=== PATIENT | male | born 1975 | race Caucasian/White ===

== ENCOUNTER 2019-05-29 15:55 | Observation (INO) | payer OTHER ==
[2019-05-29] MEDS ORDERED: SODIUM CHLORIDE 0.9% 1,000 ML IV STA (16:31)
[2019-05-29] MEDS ORDERED: DILTIAZEM DRIP BOLUS FROM BAG 1 MG SOLN IV ONE (16:45)
--- NOTE | 2019-05-29 16:50 | ED ---
General Adult HPI - General Chief complaint: Syncope Stated complaint: Syncope Time Seen by Provider: 05/29/19 16:15 Source: patient, family, RN notes reviewed Mode of arrival: EMS Limitations: no limitations - History of Present Illness Initial comments: Patient is a pleasant 43-year-old male presenting to the emergency department after 2 near-syncopal episodes. Patient felt dizzy prior to the episodes. Second episode patient did fall to the ground however did not completely black out. Patient did not completely lose consciousness on either episode. No head injury. Patient feels fine at this time line in bed. Patient denies any chest pain or difficulty in breathing. No palpitations. Patient does have a history of syncopal episode once previously associated with strep throat. Patient has no history of cardiac disease. Patient denies any confusion or isolated area of weakness. - Related Data Home Medications Medication Instructions Recorded Confirmed No Known Home Medications 05/29/19 05/29/19 Allergies Allergy/AdvReac Type Severity Reaction Status Date / Time No Known Allergies Allergy Verified 05/29/19 17:07 Review of Systems ROS Statement: Those systems with pertinent positive or pertinent negative responses have been documented in the HPI. ROS Other: All systems not noted in ROS Statement are negative. Constitutional: Denies: fever Eyes: Denies: eye pain ENT: Denies: ear pain Respiratory: Denies: cough Cardiovascular: Denies: chest pain, palpitations, dyspnea on exertion, orthopnea, edema Endocrine: Denies: fatigue Gastrointestinal: Denies: abdominal pain, vomiting Genitourinary: Denies: dysuria Musculoskeletal: Denies: back pain Skin: Denies: rash Neurological: Denies: headache, weakness, confusion Past Medical History Past Medical History: No Reported History History of Any Multi-Drug Resistant Organisms: None Reported Past Surgical History: Hernia Repair Past Psychological History: No Psychological Hx Reported Smoking Status: Former smoker Past Alcohol Use History: None Reported Past Drug Use History: None Reported General Exam Limitations: no limitations General appearance: alert, in no apparent distress Head exam: Present: atraumatic Eye exam: Present: normal appearance, PERRL, EOMI. Absent: nystagmus ENT exam: Present: normal oropharynx Neck exam: Present: normal inspection Respiratory exam: Present: normal lung sounds bilaterally Cardiovascular Exam: Present: tachycardia, irregular rhythm Expanded Peripheral pulses: 2+: Radial (R), Radial (L), Dorsalis Pedis (R), Dorsalis Pedis (L) GI/Abdominal exam: Present: soft. Absent: tenderness Extremities exam: Present: normal inspection. Absent: pedal edema, calf tenderness Neurological exam: Present: alert, oriented X3, CN II-XII intact. Absent: motor sensory deficit Expanded Neurological exam: Present: protecting the airway Patient oriented to: Present: person, place, time Speech: Present: fluid speech Cranial nerves: EOM's Intact: Normal Motor strength exam: RUE: 5, LUE: 5, RLE: 5, LLE: 5 Eye Response: (4) open spontaneously Motor Response: (6) obeys commands Verbal Response: (5) oriented Psychiatric exam: Present: normal affect, normal mood Skin exam: Present: normal color Course Vital Signs 05/29/19 05/29/19 16:07 16:14 Temperature 99.4 F Pulse Rate [ 133 H Sitting] Pulse Rate [ 164 H Standing] Pulse Rate [ 122 H Supine] Respiratory 16 Rate Blood Pressure 101/91 [Sitting] Blood Pressure 85/75 [Standing] Blood Pressure 117/77 [Supine] O2 Sat by Pulse 96 Oximetry EKG Findings - EKG Comments: EKG Findings:: A. fib with rate of 127, RVR. QRS 78. QT 324. QTC 470. Normal axis. Normal QRS. Nonspecific T waves. Medical Decision Making - Medical Decision Making Patient reevaluated and resting comfortably in bed. Patient states he has had a little bit of a sore throat and chills last couple of days similar to previous strep throat. Throat swab will be ordered. Patient is updated on results and plan. Case was also discussed in detail with Dr. Jones, who will admit covered for hospital call. Cardiology placed on consult. - Lab Data Result diagrams: 05/29/19 16:34 05/29/19 16:34 Lab Results 05/29/19 05/29/19 05/29/19 Range/Units 16:34 16:34 16:34 WBC 17.7 H (3.8-10.6) k/uL RBC 5.06 (4.30-5.90) m/uL Hgb 14.4 (13.0-17.5) gm/dL Hct 43.8 (39.0-53.0) % MCV 86.5 (80.0-100.0) fL MCH 28.5 (25.0-35.0) pg MCHC 33.0 (31.0-37.0) g/dL RDW 13.7 (11.5-15.5) % Plt Count 302 (150-450) k/uL Neutrophils % 88 % Lymphocytes % 6 % Monocytes % 4 % Eosinophils % 1 % Basophils % 0 % Neutrophils # 15.6 H (1.3-7.7) k/uL Lymphocytes # 1.1 (1.0-4.8) k/uL Monocytes # 0.6 (0-1.0) k/uL Eosinophils # 0.2 (0-0.7) k/uL Basophils # 0.0 (0-0.2) k/uL PT (9.0-12.0) sec INR (<1.2) APTT (22.0-30.0) sec Sodium 137 (137-145) mmol/L Potassium 3.8 (3.5-5.1) mmol/L Chloride 105 (98-107) mmol/L Carbon Dioxide 23 (22-30) mmol/L Anion Gap 9 mmol/L BUN 13 (9-20) mg/dL Creatinine 1.15 (0.66-1.25) mg/dL Est GFR (CKD-EPI)AfAm 90 (>60 ml/min/1.73 sqM) Est GFR (CKD-EPI)NonAf 78 (>60 ml/min/1.73 sqM) Glucose 108 H (74-99) mg/dL Plasma Lactic Acid Larry 1.6 (0.7-2.0) mmol/L Calcium 9.1 (8.4-10.2) mg/dL Magnesium 2.0 (1.6-2.3) mg/dL Troponin I (0.000-0.034) ng/mL 05/29/19 05/29/19 Range/Units 16:34 16:34 WBC (3.8-10.6) k/uL RBC (4.30-5.90) m/uL Hgb (13.0-17.5) gm/dL Hct (39.0-53.0) % MCV (80.0-100.0) fL MCH (25.0-35.0) pg MCHC (31.0-37.0) g/dL RDW (11.5-15.5) % Plt Count (150-450) k/uL Neutrophils % % Lymphocytes % % Monocytes % % Eosinophils % % Basophils % % Neutrophils # (1.3-7.7) k/uL Lymphocytes # (1.0-4.8) k/uL Monocytes # (0-1.0) k/uL Eosinophils # (0-0.7) k/uL Basophils # (0-0.2) k/uL PT 10.6 (9.0-12.0) sec INR 1.0 (<1.2) APTT 20.8 L (22.0-30.0) sec Sodium (137-145) mmol/L Potassium (3.5-5.1) mmol/L Chloride (98-107) mmol/L Carbon Dioxide (22-30) mmol/L Anion Gap mmol/L BUN (9-20) mg/dL Creatinine (0.66-1.25) mg/dL Est GFR (CKD-EPI)AfAm (>60 ml/min/1.73 sqM) Est GFR (CKD-EPI)NonAf (>60 ml/min/1.73 sqM) Glucose (74-99) mg/dL Plasma Lactic Acid Larry (0.7-2.0) mmol/L Calcium (8.4-10.2) mg/dL Magnesium (1.6-2.3) mg/dL Troponin I <0.012 (0.000-0.034) ng/mL - Radiology Data Radiology results: image reviewed (Chest x-ray shows no acute process) Critical Care Time Critical Care Time: Yes Total Critical Care Time: 35 Disposition Clinical Impression: Atrial fibrillation with RVR Disposition: ADMITTED IP TO THIS HOSP Is patient prescribed a controlled substance at d/c from ED?: No Referrals: None,Stated [Primary Care Provider] - 1-2 days Decision Time: 17:59
[2019-05-29 16:52] LABS: Basophils % (A) 0 %; Eosinophils # (A) 0.2 k/uL (0-0.7); Eosinophils % (A) 1 %; HCT 43.8 % (39.0-53.0); HGB 14.4 gm/dL (13.0-17.5); Lymphocytes # (A) 1.1 k/uL (1.0-4.8); Lymphocytes % (A) 6 %; MCH 28.5 pg (25.0-35.0); MCV 86.5 fL (80.0-100.0); Mean Platelet Volume 6.2; Monocytes # (A) 0.6 k/uL (0-1.0); Monocytes % (A) 4 %; Neutrophils # (A) 15.6 k/uL (1.3-7.7); Neutrophils % (A) 88 %; Platelet Count 302 k/uL (150-450); RBC 5.06 m/uL (4.30-5.90); RDW 13.7 % (11.5-15.5); WBC 17.7 k/uL (3.8-10.6)
[2019-05-29 17:01] LABS: Prothrombin Time 10.6 sec (9.0-12.0)
[2019-05-29 17:02] LABS: Calcium 9.1 mg/dL (8.4-10.2); Potassium 3.8 mmol/L (3.5-5.1)
[2019-05-29 17:08] LABS: Partial Thromboplastin Time 20.8 sec (22.0-30.0)
[2019-05-29] MEDS: DILTIAZEM 125 MG in SODIUM CHLORIDE 0.9% 100 ML IV SCH (17:09)
--- NOTE | 2019-05-29 17:45 | XR ---
EXAMINATION TYPE: XR chest 1V portable DATE OF EXAM: 05/29/2019 COMPARISON: NONE HISTORY: Syncope TECHNIQUE: Single frontal view of the chest is obtained. FINDINGS: Heart and mediastinum are normal. Lungs are clear. Diaphragm is normal. There are chest le ads. IMPRESSION: Normal chest
[2019-05-29] MEDS ORDERED: ASPIRIN 81 MG PO STA (17:59)
[2019-05-29] MEDS ORDERED: HEPARIN SODIUM,PORCINE 5,000 UNIT/ML 1 ML VIAL IV ONE (17:59)
[2019-05-29] MEDS ORDERED: HEPARIN SODIUM,PORCINE 5,000 UNIT/ML 1 ML VIAL IV PRN (17:59)
[2019-05-29] MEDS ORDERED: NITROGLYCERIN SL TABS 0.4 MG TAB SUBLINGUAL PRN (17:59)
[2019-05-29] MEDS: HEPARIN SOD,PORK IN 0.45% NACL 25,000 UNIT in 0.45% NACL 1 250ML.BAG IV SCH (19:12)
[2019-05-29] MEDS: ACETAMINOPHEN TAB 500 MG TAB PO PRN (19:20)
--- NOTE | 2019-05-29 21:16 | P.HPIM ---
History of Present Illness H&P Date: 05/29/19 Chief Complaint: near syncope, sore throat 43-year-old male with no significant past medical history Patient presented to the hospital due to 2 episodes of near-syncope first one felt dizzy sick and when he actually fell to the ground did not hit his head did not lose consciousness. He did not feel any palpitations chest pain or trouble breathing with these events. He denies any cardiac history. Patient denies any associated nausea or vomiting. He was worried that he's having strep throat as he was having positive sore throat and his and daughter both had strep throat and been treating for it. His was hospitalized and discharged today from the hospital. He's been having tough time over the past week with life stressors. In the ED EKG showed A. fib with rapid ventricular response, chest x-ray was unremarkable Rapid strep test was negative Labs showed normal magnesium and potassium Otherwise patient denies any nausea vomiting, chest pain trouble breathing, abdominal pain fevers or chills. Patient denies any history of syncope or cardiac disease Review of Systems Pertinent positives as noted in HPI. All other systems were reviewed and are negative Past Medical History Past Medical History: No Reported History History of Any Multi-Drug Resistant Organisms: None Reported Past Surgical History: Hernia Repair Past Psychological History: No Psychological Hx Reported Smoking Status: Former smoker Past Alcohol Use History: None Reported Past Drug Use History: None Reported - Past Family History Family Additional Family Medical History / Comment(s): Positive strep throat and and daughter Medications and Allergies Home Medications Medication Instructions Recorded Confirmed Type No Known Home Medications 05/29/19 05/29/19 History Allergies Allergy/AdvReac Type Severity Reaction Status Date / Time No Known Allergies Allergy Verified 05/29/19 17:07 Physical Exam Vitals: Vital Signs Temp Pulse Pulse Pulse Pulse Resp BP 05/29/19 19:10 120 H 18 80/58 05/29/19 19:02 102.9 F H 118 H 18 92/59 05/29/19 19:00 129 H 20 92/59 05/29/19 18:50 123 H 20 89/52 05/29/19 18:40 117 H 21 90/49 05/29/19 18:30 111 H 21 87/49 05/29/19 18:20 122 H 20 96/47 05/29/19 18:10 123 H 20 91/54 05/29/19 18:00 117 H 18 101/78 05/29/19 17:50 112 H 20 106/70 05/29/19 17:40 120 H 20 05/29/19 17:30 105 H 19 102/78 05/29/19 17:20 115 H 18 120/69 05/29/19 17:10 122 H 18 99/79 05/29/19 17:00 121 H 18 111/53 05/29/19 16:50 130 H 17 111/53 05/29/19 16:40 123 H 20 111/53 05/29/19 16:30 126 H 17 88/75 05/29/19 16:20 121 H 18 88/75 05/29/19 16:14 133 H 164 H 122 H 05/29/19 16:12 129 H 05/29/19 16:10 140 H 20 117/77 05/29/19 16:08 129 H 16 05/29/19 16:07 99.4 F 16 BP BP BP Pulse Ox 05/29/19 19:10 98 05/29/19 19:02 97 05/29/19 19:00 99 05/29/19 18:50 99 05/29/19 18:40 98 05/29/19 18:30 98 05/29/19 18:20 96 05/29/19 18:10 98 05/29/19 18:00 97 05/29/19 17:50 98 05/29/19 17:40 98 05/29/19 17:30 99 05/29/19 17:20 99 05/29/19 17:10 98 05/29/19 17:00 96 05/29/19 16:50 96 05/29/19 16:40 94 L 05/29/19 16:30 96 05/29/19 16:20 95 05/29/19 16:14 101/91 85/75 117/77 05/29/19 16:12 05/29/19 16:10 97 05/29/19 16:08 96 05/29/19 16:07 96 Intake and Output 05/29/19 05/29/19 05/29/19 06:59 14:59 22:59 Intake Total 18.583 Balance 18.583 Intake: Intake, IV Titration 18.583 Amount Diltiazem 125 mg In 18.583 Sodium Chloride 0.9% 100 ml @ 5 MG/HR 5 mls/hr IV .Q24H [facility] Rx#:[id number] Other: Weight 110.223 kg Constitutional: No acute distress, conversant, pleasant Eyes: Anicteric sclerae, moist conjunctiva, no lid-lag Pupils equal round reactive to light ENMT: NC/AT Oropharynx clear, no erythema, or exudates Neck: Supple, FROM, no masses, or JVD No carotid bruits No thyromegaly Lungs: Clear to auscultation Clear to percussion Normal respiratory effort, no accessory muscle use Cardiovascular: Heart regular No murmurs, gallops, or rubs No peripheral edema Abdominal: Soft Nontender, no guarding, rebound or rigidity Abdomen moving with respiration Normoactive bowel sounds No hepatomegaly, No splenomegaly No palpable mass No abdominal wall hernia noted Skin: Normal temperature, tone, texture, turgor No induration No subcutaneous nodules No rash, lesions No ulcers Extremities: No digital cyanosis No clubbing Pedal pulses intact and symmetrical Radial pulses intact and symmetrical No calf tenderness Psychiatric: Alert and oriented to person, place and time Appropriate affect fair judgment Neuro Muscles Strength 5/5 in all 4 extremities Sensation to light touch grossly present throughout Cranial nerves II-XII grossly intact No focal sensory deficits Lymphatics: no palpable cervical or supraclavicular , or inguinal lymph nodes Results CBC & Chem 7: 05/29/19 16:34 05/29/19 16:34 Labs: Abnormal Lab Results - Last 24 Hours (Table) 05/29/19 05/29/19 05/29/19 Range/Units 16:34 16:34 16:34 WBC 17.7 H (3.8-10.6) k/uL Neutrophils # 15.6 H (1.3-7.7) k/uL APTT 20.8 L (22.0-30.0) sec Glucose 108 H (74-99) mg/dL Assessment and Plan Assessment: 43 year old male with no significant past medical history , admitted as inpatient with anticipated length of stay of >48 hours for atrial fibrillation with rapid ventricular response resulting in pre syncopal symptoms . patient had a rapid strep test done and was negative Plan: atrial fibrillation with rapid ventricular response Cardiology consult Patient currently on Cardizem drip and heparin drip Echocardiogram Check TSH Cardiac monitoring Fall precautions Sore throat Rapid Strep test was negative Patient and daughter both had strep throat Follow-up cultures Leukocytosis possibly secondary to above DVT prophylaxis currently on heparin drip for A. fib Surrogate decision-maker: CODE STATUS: Full code Discussed with: Patient, ER, *RN Anticipated discharge: 48-[address]: Home A total of 60 minutes was spent on the care of this complex patient more than 50% of the time was spent in counseling and care coordination.
[2019-05-29 23:15] VITALS: BMI 32.9
[2019-05-30] MEDS: ACETAMINOPHEN TAB 500 MG TAB PO PRN ×4 (04:15→22:49)
[2019-05-30 05:44] LABS: Basophils % (A) 0 %; Eosinophils # (A) 0.1 k/uL (0-0.7); Eosinophils % (A) 1 %; HCT 42.8 % (39.0-53.0); HGB 13.8 gm/dL (13.0-17.5); Lymphocytes # (A) 2.8 k/uL (1.0-4.8); Lymphocytes % (A) 20 %; MCHC 32.2 g/dL (31.0-37.0); Mean Platelet Volume 6.2; Monocytes % (A) 7 %; Neutrophils # (A) 10.3 k/uL (1.3-7.7); Neutrophils % (A) 71 %; Platelet Count 250 k/uL (150-450); RBC 4.92 m/uL (4.30-5.90); RDW 13.7 % (11.5-15.5); WBC 14.5 k/uL (3.8-10.6)
[2019-05-30 06:19] LABS: African American GFR (CKD) >90 (>60 ml/min/1.73 sqM); Anion Gap 7 mmol/L; Blood Urea Nitrogen 12 mg/dL (9-20); Calcium 8.3 mg/dL (8.4-10.2); Carbon Dioxide 24 mmol/L (22-30); Chloride 107 mmol/L (98-107); Cholesterol 122 mg/dL (<200); Glucose 92 mg/dL (74-99); HDL Cholesterol 25 mg/dL (40-60); LDL Cholesterol,Calculated 80 mg/dL (0-99); Potassium 3.6 mmol/L (3.5-5.1); Sodium 138 mmol/L (137-145); Triglycerides 84 mg/dL (<150)
--- NOTE | 2019-05-30 08:43 | P.CRDCN ---
History of Present Illness Consult date: 05/30/19 Requesting physician: Mercy Aguillon Consult reason: atrial fibrillation Chief complaint: Fever History of present illness: This is a 43-year-old gentleman with no significant past medical history, he is not diabetic, has no hypertension, no hyperlipidemia, he does not smoke, he presents to the hospital with symptoms of fever and chills with associated sore throat. His was just discharged from the hospital after being admitted with strep throat. He also states that his daughter is just been through a bout of strep throat. His blood pressure on arrival here 117/70 with a heart rate of 140, temperature 99.4 this time did go up to 103. He was also quite hypotensive with a blood pressure around 80. I pressure this morning 122/70 heart rate 116, temperature 90.9 point 70s 99% on room air. Chest x-ray normal. EKG on presentation here showed atrial fibrillation with rapid ventricular response. Blood cell count 17.7 on arrival, 14.5 this morning, hemoglobin 13.8, platelet count 250. Sodium 138, potassium 3.6, BUN 12, creatinine 1.0. Troponins negative 3. Rapid strep test was negative. Cultures have been sent. They are pending. At the time of my examination this morning patient feels generally achy and feverish. No other complaints. Denies any palpitations, shortness of breath, dizziness or lightheadedness. Past Medical History Past Medical History: No Reported History History of Any Multi-Drug Resistant Organisms: None Reported Past Surgical History: Hernia Repair Past Psychological History: No Psychological Hx Reported Smoking Status: Former smoker Past Alcohol Use History: None Reported Past Drug Use History: None Reported - Past Family History Family Additional Family Medical History / Comment(s): Positive strep throat and and daughter Medications and Allergies Home Medications Medication Instructions Recorded Confirmed Type No Known Home Medications 05/29/19 05/29/19 History Allergies Allergy/AdvReac Type Severity Reaction Status Date / Time No Known Allergies Allergy Verified 05/29/19 17:07 Physical Exam Vitals: Vital Signs Temp Pulse Pulse Pulse Pulse Resp BP 05/30/19 04:00 99.7 F H 116 H 17 05/30/19 01:20 98.7 F 89 18 05/29/19 23:44 98.5 F 94 18 05/29/19 19:10 120 H 18 80/58 05/29/19 19:02 102.9 F H 118 H 18 92/59 05/29/19 19:00 129 H 20 92/59 05/29/19 18:50 123 H 20 89/52 05/29/19 18:40 117 H 21 90/49 05/29/19 18:30 111 H 21 87/49 05/29/19 18:20 122 H 20 96/47 05/29/19 18:10 123 H 20 91/54 05/29/19 18:00 117 H 18 101/78 05/29/19 17:50 112 H 20 106/70 05/29/19 17:40 120 H 20 05/29/19 17:30 105 H 19 102/78 05/29/19 17:20 115 H 18 120/69 05/29/19 17:10 122 H 18 99/79 05/29/19 17:00 121 H 18 111/53 05/29/19 16:50 130 H 17 111/53 05/29/19 16:40 123 H 20 111/53 05/29/19 16:30 126 H 17 88/75 05/29/19 16:20 121 H 18 88/75 05/29/19 16:14 133 H 164 H 122 H 05/29/19 16:12 129 H 05/29/19 16:10 140 H 20 117/77 05/29/19 16:08 129 H 16 05/29/19 16:07 99.4 F 16 BP BP BP Pulse Ox 05/30/19 04:00 122/72 99 05/30/19 01:20 134/74 97 05/29/19 23:44 96/56 99 05/29/19 19:10 98 05/29/19 19:02 97 05/29/19 19:00 99 05/29/19 18:50 99 05/29/19 18:40 98 05/29/19 18:30 98 05/29/19 18:20 96 05/29/19 18:10 98 05/29/19 18:00 97 05/29/19 17:50 98 05/29/19 17:40 98 05/29/19 17:30 99 05/29/19 17:20 99 05/29/19 17:10 98 05/29/19 17:00 96 05/29/19 16:50 96 05/29/19 16:40 94 L 05/29/19 16:30 96 05/29/19 16:20 95 05/29/19 16:14 101/91 85/75 117/77 05/29/19 16:12 05/29/19 16:10 97 05/29/19 16:08 96 05/29/19 16:07 96 Intake and Output 05/29/19 05/30/19 05/30/19 22:59 06:59 14:59 Intake Total 18.583 69.5 240 Balance 18.583 69.5 240 Intake: Intake, IV Titration 18.583 69.5 Amount Diltiazem 125 mg In 18.583 Sodium Chloride 0.9% 100 ml @ 5 MG/HR 5 mls/hr IV .Q24H [facility] Rx#:[id number] Heparin Sod,Pork in 0.45% 69.5 NaCl 25,000 unit In 0.45 % NaCl 1 250ml.bag @ 9. 0723 UNITS/KG/HR 10 mls/ hr IV .Q24H [facility] Rx#: [id number] Oral 240 Other: Voiding Method Toilet # Voids 2 Weight 110.223 kg 120.9 kg PHYSICAL EXAMINATION: GENERAL: 43-year-old gentleman in no acute distress at the time of my examination HEENT: Head is atraumatic, normocephalic. Pupils equal, round. Sclera anicteric. Conjunctiva are clear. Mucous membranes of the mouth are moist. Neck is supple. There is no elevated jugular venous pressure. No carotid bruit is heard. HEART EXAMINATION: S1 and S2 irregularly irregular CHEST EXAMINATION: Lungs are clear to auscultation and precussion. No chest wall tenderness is noted on palpation or with deep breathing. ABDOMEN: Soft, nontender. Bowel sounds are heard. No organomegaly noted. EXTREMITIES: 2+ peripheral pulses with no evidence of peripheral edema and no calf tenderness noted. NEUROLOGIC patient is awake, alert and oriented 3 . . Results 05/30/19 05:29 05/30/19 05:29 Cardiac Enzymes 05/29/19 05/29/19 05/30/19 Range/Units 16:34 22:04 05:29 Troponin I <0.012 <0.012 <0.012 (0.000-0.034) ng/mL Coagulation 05/29/19 05/30/19 05/30/19 Range/Units 16:34 01:17 07:39 PT 10.6 (9.0-12.0) sec APTT 20.8 L 30.5 H 52.4 H (22.0-30.0) sec Lipids 05/30/19 Range/Units 05:29 Triglycerides 84 (<150) mg/dL Cholesterol 122 (<200) mg/dL HDL Cholesterol 25 L (40-60) mg/dL CBC 05/29/19 05/30/19 Range/Units 16:34 05:29 WBC 17.7 H 14.5 H (3.8-10.6) k/uL RBC 5.06 4.92 (4.30-5.90) m/uL Hgb 14.4 13.8 (13.0-17.5) gm/dL Hct 43.8 42.8 (39.0-53.0) % Plt Count 302 250 (150-450) k/uL Comprehensive Metabolic Panel 05/29/19 05/30/19 Range/Units 16:34 05:29 Sodium 137 138 (137-145) mmol/L Potassium 3.8 3.6 (3.5-5.1) mmol/L Chloride 105 107 (98-107) mmol/L Carbon Dioxide 23 24 (22-30) mmol/L BUN 13 12 (9-20) mg/dL Creatinine 1.15 1.07 (0.66-1.25) mg/dL Glucose 108 H 92 (74-99) mg/dL Calcium 9.1 8.3 L (8.4-10.2) mg/dL Current Medications Generic Name Dose Route Start Last Admin Trade Name Freq PRN Reason Stop Dose Admin Acetaminophen 1,000 mg 05/29/19 19:09 05/30/19 04:15 Tylenol Tab PO 1,000 mg Q6HR PRN Administration Fever and/ or Pain Aspirin 325 mg 05/30/19 09:00 Aspirin PO DAILY [facility] Heparin Sodium (Porcine) 0 unit 05/29/19 17:59 Heparin IV Q6HR PRN Low PTT Protocol Diltiazem HCl 125 mg/ Sodium 125 mls @ 5 mls/hr 05/29/19 16:45 05/29/19 19:26 Chloride IV 5 mg/hr .Q24H [facility] 5 mls/hr Infusion 5 MG/HR Heparin Sodium/Sodium Chloride 250 mls @ 10 mls/hr 05/29/19 18:00 05/30/19 02:09 25,000 unit/ Sodium Chloride IV 11.79 units/kg/hr .Q24H [facility] 13 mls/hr Titration Protocol 9.0723 UNITS/KG/HR Ceftriaxone Sodium 1 gm/ 50 mls @ 100 mls/hr 05/30/19 09:00 Sodium Chloride IVPB Q24HR [facility] Nitroglycerin 0.4 mg 05/29/19 17:59 Nitrostat SUBLINGUAL Q5M PRN Chest Pain Sodium Chloride 10 ml 05/29/19 21:00 05/29/19 23:49 Saline Flush IV Not Given BID [facility] Intake and Output 05/29/19 05/30/19 05/30/19 22:59 06:59 14:59 Intake Total 18.583 69.5 240 Balance 18.583 69.5 240 Intake: Intake, IV Titration 18.583 69.5 Amount Diltiazem 125 mg In 18.583 Sodium Chloride 0.9% 100 ml @ 5 MG/HR 5 mls/hr IV .Q24H [facility] Rx#:[id number] Heparin Sod,Pork in 0.45% 69.5 NaCl 25,000 unit In 0.45 % NaCl 1 250ml.bag @ 9. 0723 UNITS/KG/HR 10 mls/ hr IV .Q24H [facility] Rx#: [id number] Oral 240 Other: Voiding Method Toilet # Voids 2 Weight 110.223 kg 120.9 kg 05/30/19 05:29 05/30/19 05:29 EKG Interpretations (text) EKG shows atrial fibrillation with a rapid ventricular response Assessment and Plan Plan: Assessment and plan #1 fever and chills, elevated white blood cell count, temperature up to 103 this admission. Patient has been initiated on IV antibiotics, but cultures pending recent exposure to strep\ #2 new-onset atrial fibrillation, likely secondary to infection #3 cardiac risk factors negative for hypertension, no diabetes, no hyperlipidemia, patient is a nonsmoker Plan We will continue IV heparin, obtain an echo cardiac gram with Doppler study as well as a TSH level. Discontinue aspirin. Initiate beta brien for rate control. Further recommendations to follow. DNP note has been reviewed, I agree with a documented findings and plan of care. Patient was seen and examined.
[2019-05-30] MEDS ORDERED: ASPIRIN 325 MG TAB PO SCH (09:00)
[2019-05-30] MEDS: METOPROLOL TARTRATE 25 MG TAB PO SCH ×2 (10:04→19:43)
--- NOTE | 2019-05-30 11:41 | ECHOF ---
Referral Reason:A. fib with RVR MEASUREMENTS -------- HEIGHT: 182.9 cm WEIGHT: 120.7 kg BP: 156/73 IVSd: 1.3 cm (0.6 - 1.1) LVIDd: 5.0 cm (3.9 - 5.3) LVPWd: 1.4 cm (0.6 - 1.1) IVSs: 1.9 cm LVIDs: 4.3 cm LVPWs: 1.3 cm LA Diam: 4.1 cm (2.7 - 3.8) RVIDd: 3.3 cm (< 3.3) LAESV Index (A-L): 31.19 ml/m Ao Diam: 3.5 cm (2.0 - 3.7) LA Diam: 4.2 cm (2.7 - 3.8) AV Cusp: 2.2 cm (1.5 - 2.6) EPSS: 0.6 cm MV E Joe: 0.74 m/s MV DecT: 220 ms MV A Joe: 0.01 m/s MV E/A Ratio: 69.53 RAP: 5.00 mmHg RVSP: 19.89 mmHg MV EF SLOPE: 128.03 mm/s (70 - 150) MV EXCURSION: 17.18 mm (> 18.000) FINDINGS -------- Atrial fibrillation. This was a technically adequate study. The left ventricular size is normal. There is mild concentric left ventricular hypertrophy. Overa ll left ventricular systolic function is normal with, an EF between 55 - 60 %. Left ventricular heladio limg pressure cannot be estimated due to Atrial fibrillation. The right ventricle is normal in size. The left atrium is mildly dilated. LA is midly dilated 29-33ml/m2. The right atrial size is normal. The aortic valve is trileaflet, and appears structurally normal. No aortic stenosis or regurgitation. Mild mitral regurgitation is present. Mild tricuspid regurgitation present. There is no evidence of pulmonary hypertension. The right v entricular systolic pressure, as measured by Doppler, is 19.89mmHg. There is no pulmonic regurgitation present. The aortic root size is normal. There is no pericardial effusion. CONCLUSIONS -------- 1. Atrial fibrillation. 2. This was a technically adequate study. 3. The left ventricular size is normal. 4. There is mild concentric left ventricular hypertrophy. 5. Overall left ventricular systolic function is normal with, an EF between 55 - 60 %. 6. Left ventricular fillimg pressure cannot be estimated due to Atrial fibrillation. 7. The right ventricle is normal in size. 8. The left atrium is mildly dilated. 9. LA is midly dilated 29-33ml/m2. 10. The right atrial size is normal. 11. The aortic valve is trileaflet, and appears structurally normal. No aortic stenosis or regurgitat ion. 12. Mild mitral regurgitation is present. 13. Mild tricuspid regurgitation present. 14. There is no evidence of pulmonary hypertension. 15. The right ventricular systolic pressure, as measured by Doppler, is 19.89mmHg. 16. There is no pulmonic regurgitation present. 17. The aortic root size is normal. 18. There is no pericardial effusion. DUMBWAITER OPERATOR: Mary Bejarano RDCS
[2019-05-30] MEDS: BENZOCAINE/MENTHOL LOZENG 1 EACH LOZENGE MUCOUS MEM PRN ×2 (16:21→21:12)
[2019-05-30] MEDS: HEPARIN SOD,PORK IN 0.45% NACL 25,000 UNIT in 0.45% NACL 1 250ML.BAG IV SCH (16:33)
[2019-05-30 16:37] VITALS: RESP 16
--- NOTE | 2019-05-30 18:32 | P.PN ---
Subjective Progress Note Date: 05/30/19 (delayed charting seen at 10am) Principal diagnosis: dizziness Patient is a 43-year-old male with no significant past medical history who presented to the ER with complaints of 2 episodes of near syncope associated with dizziness. In the ER he underwent an extensive evaluation. On arrival he has not had a heart rate of 129 which is irregular and EKG confirmed A. fib with RVR. Laboratory analysis showed a white blood cell count of 17.7 was otherwise unremarkable. Patient was started on a Cardizem drip and heparin drip. He also been complaining of a sore throat and both his and daughter had been diagnosed with strep throat that was culture positive. His rapid strep test was negative. He is admitted for further monitoring and cardiology was consulted. Troponin was negative 3. Cardiology recommended starting oral metoprolol and likely no need for anticoagulation secondary to low event of A. fib. Echocardiogram demonstrated an ejection fraction 55-60% with mild LVH but was otherwise unremarkable. Patient seen and examined at bedside. He complains of severe sore throat and weakness. His dizziness is improved. He denies any chest pain or shortness of breath. Objective - Vital Signs Vital signs: Vital Signs Temp 98.1 F 05/30/19 16:00 Pulse 82 05/30/19 16:00 Resp 16 05/30/19 16:00 BP 121/81 05/30/19 16:00 Pulse Ox 97 05/30/19 16:00 Intake & Output 05/29/19 05/30/19 05/30/19 18:59 06:59 18:59 Intake Total 4.25 83.833 1020.5 Output Total 600 Balance 4.25 83.833 420.5 Weight 110.223 kg 120.9 kg Intake: Intake, IV Titration 4.25 83.833 180.5 Amount Diltiazem 125 mg In 4.25 14.333 Sodium Chloride 0.9% 100 ml @ 5 MG/HR 5 mls/hr IV .Q24H LISANDRO Rx#:[id number] Heparin Sod,Pork in 0.45% 69.5 180.5 NaCl 25,000 unit In 0.45 % NaCl 1 250ml.bag @ 9. 0723 UNITS/KG/HR 10 mls/ hr IV .Q24H LISANDRO Rx#: [id number] Oral 840 Output: Urine 600 Other: Voiding Method Toilet Toilet # Voids 2 1 - Exam General: Ill-appearing, distressed, appears at stated age Derm: warm, dry Head: atraumatic, normocephalic, symmetric Eyes: EOMI, no lid lag, anicteric sclera Mouth: no lip lesion, mucus membranes moist, + pharyngeal erythema, no exudates Cardiovascular: S1-S2 irregular, no murmur, positive posterior tibial pulse bilateral, Lungs: CTA bilateral, no rhonchi, no rales , no accessory muscle use Abdominal: soft, nontender to palpation, no guarding, no appreciable organomegaly Ext: no gross muscle atrophy, no edema, no contractures Neuro: CN II-XI grossly intact, no focal neuro deficits Psych: Alert, oriented, appropriate affect - Labs CBC & Chem 7: 05/30/19 05:29 05/30/19 05:29 Labs: Abnormal Lab Results - Last 24 Hours (Table) 05/30/19 05/30/19 05/30/19 Range/Units 01:17 05:29 05:29 WBC 14.5 H (3.8-10.6) k/uL Neutrophils # 10.3 H (1.3-7.7) k/uL APTT 30.5 H (22.0-30.0) sec Calcium 8.3 L (8.4-10.2) mg/dL HDL Cholesterol 25 L (40-60) mg/dL 05/30/19 Range/Units 07:39 WBC (3.8-10.6) k/uL Neutrophils # (1.3-7.7) k/uL APTT 52.4 H (22.0-30.0) sec Calcium (8.4-10.2) mg/dL HDL Cholesterol (40-60) mg/dL Microbiology - Last 24 Hours (Table) 05/29/19 19:10 Group A Strep Throat Culture - Preliminary Throat Assessment and Plan Assessment: Pharyngitis with sepsis, suspect strep -As per ISDA guidelines Will initiate penicillin therapy as patient has a known exposure to group A strep associated with signs and symptoms of pharyngitis. Plan a total course of 10 days of antibiotics. We'll give IV 1 followed by amoxicillin 500 twice a day -Await culture -IV fluids -Repeat CBC in a.m. Atrial fibrillation with rapid ventricular response -Continue with heparin drip -Wean Cardizem drip as patient has been started on oral metoprolol -Cardiology recommendations -Plan for aspirin on discharge -TSH negative DVT prophylaxis: Heparin drip Discussed with: Patient , nursing, cardiology Anticipated discharge: 1-[address]: home A total of [25] minutes was spent on the care of this complex patient more than 50% of the time was spent in counseling and care coordination.
[2019-05-30] MEDS: AMOXICILLIN 500 MG CAP PO SCH (19:43)
[2019-05-30] MEDS: DILTIAZEM 125 MG in SODIUM CHLORIDE 0.9% 100 ML IV SCH (19:43)
[2019-05-31] MEDS: BENZOCAINE/MENTHOL LOZENG 1 EACH LOZENGE MUCOUS MEM PRN (05:19)
[2019-05-31 06:41] LABS: HCT 44.6 % (39.0-53.0); HGB 14.4 gm/dL (13.0-17.5); MCH 28.3 pg (25.0-35.0); MCHC 32.3 g/dL (31.0-37.0); MCV 87.8 fL (80.0-100.0); Mean Platelet Volume 6.3; Platelet Count 310 k/uL (150-450); RBC 5.08 m/uL (4.30-5.90); RDW 13.5 % (11.5-15.5); WBC 14.3 k/uL (3.8-10.6)
[2019-05-31] MEDS: METOPROLOL TARTRATE 25 MG TAB PO SCH (07:49)
[2019-05-31] MEDS ORDERED: ASPIRIN 325 MG TAB PO SCH (09:00)
[2019-05-31] MEDS: AMOXICILLIN 500 MG CAP PO SCH (09:14)
--- NOTE | 2019-05-31 13:44 | P.DS ---
Providers Date of admission: 05/29/19 17:59 Expected date of discharge: 05/31/19 Attending physician: Mercy Aguillon MD Consults: 05/29/19 17:59 Consult Physician Urgent Consulting Provider: Greg Estevez Consult Reason/Comments: a fib w rvr Do you want consulting provider notified?: Yes Primary care physician: Stated None Hospital Course: Discharge Diagnosis: Pharyngitis with sepsis, probable strep Atrial fibrillation with rapid ventricular response Hospital Course: Patient is a 43-year-old male with no significant past medical history who presented to the ER with complaints of 2 episodes of near syncope associated with dizziness. In the ER he underwent an extensive evaluation. On arrival he has not had a heart rate of 129 which is irregular and EKG confirmed A. fib with RVR. Laboratory analysis showed a white blood cell count of 17.7 was otherwise unremarkable. Patient was started on a Cardizem drip and heparin drip. He also been complaining of a sore throat and both his and daughter had been diagnosed with strep throat that was culture positive. His rapid strep test was negative. He is admitted for further monitoring and cardiology was consulted. Troponin was negative 3. Cardiology recommended starting oral metoprolol and likely no need for anticoagulation secondary to low CHADS score. Echocardiogram demonstrated an ejection fraction 55-60% with mild LVH but was otherwise unremarkable. He was started on antibiotics secondary to known strep exposure along with symptoms of strep throat as per ISDA guideline. He remained in atrial fibrillation but was rate controlled. His white blood cell count improved from 17-14 he was afebrile. He was determined stable for discharge home. He will complete a total of 10 days of antibiotics for his strep throat. He will follow-up with Dr. Carrasco as well as Dr. Estevez. Patient seen and examined at bedside. Throat is feeling much improved but still not back to baseline. No chest pain, shortness of breath, lightheadedness, dizziness, or palpitations. Vital signs reviewed and stable. General: non toxic, no distress, appears at stated age Derm: warm, dry Head: atraumatic, normocephalic, symmetric Eyes: EOMI, no lid lag, anicteric sclera, + pharyngeal erythema with tonsillar enlargement, no exudate, + cervical lymphadenopathy Mouth: no lip lesion, mucus membranes moist Cardiovascular: S1S2 reg, no murmur, positive posterior tibial pulse bilateral, Lungs: CTA bilateral, no rhonchi, no rales , no accessory muscle use Abdominal: soft, nontender to palpation, no guarding, no appreciable organomegaly Ext: no gross muscle atrophy, no edema, no contractures Neuro: CN II-XI grossly intact, no focal neuro deficits Psych: Alert, oriented, appropriate affect A total of 25 minutes of time were spent preparing this complex discharge summary . Pertinent Studies: Echocardiogram-ejection fraction 55-60%, atrial fibrillation Patient Condition at Discharge: Stable Plan - Discharge Summary New Discharge Prescriptions: New Amoxicillin 500 mg PO Q12HR #16 cap Aspirin 325 mg PO DAILY #30 tab Metoprolol Tartrate [Lopressor] 25 mg PO BID #60 tab Discharge Medication List Amoxicillin 500 mg PO Q12HR #16 cap 05/31/19 [Rx] Aspirin 325 mg PO DAILY #30 tab 05/31/19 [Rx] Metoprolol Tartrate [Lopressor] 25 mg PO BID #60 tab 05/31/19 [Rx] Follow up Appointment(s)/Referral(s): Greg Estevez MD [STAFF PHYSICIAN] - 06/12/19 2:45 pm (With [facility]. Jen's appointment moved to 3:00 PM instead of 11:15 AM. ) Aislinn Carrasco MD [STAFF PHYSICIAN] - 06/28/19 12:20 pm (Please go with eJn to follow up, and you will be seen after her appointment. ) Patient Instructions/Handouts: A-fib (Atrial Fibrillation) (DC), Safe Use of Antiplatelet Medication (DC) Activity/Diet/Wound Care/Special Instructions: Diet: regular Activity: as tolerated
[2019-05-31 14:03] VITALS: BP 133/82; PULSE 78; TEMP 97.5
--- NOTE | 2019-05-31 15:16 | P.PN ---
Subjective Progress Note Date: 05/31/19 This is a 43-year-old gentleman with no significant past medical history, he is not diabetic, has no hypertension, no hyperlipidemia, he does not smoke, he presents to the hospital with symptoms of fever and chills with associated sore throat. His was just discharged from the hospital after being admitted with strep throat. He also states that his daughter is just been through a bout of strep throat. His blood pressure on arrival here 117/70 with a heart rate of 140, temperature 99.4 this time did go up to 103. He was also quite hypotensive with a blood pressure around 80. I pressure this morning 122/70 heart rate 116, temperature 90.9 point 70s 99% on room air. Chest x-ray normal. EKG on presentation here showed atrial fibrillation with rapid ventricular response. Blood cell count 17.7 on arrival, 14.5 this morning, hemoglobin 13.8, platelet count 250. Sodium 138, potassium 3.6, BUN 12, creatinine 1.0. Troponins negative 3. Rapid strep test was negative. Cultures have been sent. They are pending. At the time of my examination this morning patient feels generally achy and feverish. No other complaints. Denies any palpitations, shortness of breath, dizziness or lightheadedness. 05/31/2019 Patient was seen and examined this morning, feeling much better overall. At pressure 132/80 with a heart rate in the 70s, 98% on room air. White blood cell count 14.3, hemoglobin 14, platelet count 310. Echocardiogram with Doppler study showed a normal ejection fraction. Patient continues to be in atrial fibrillation today, rate under adequate control. He may be able to be discharged home from our perspective, we will recommend although his chads fast score is 1 to continue him on Eliquis for 6 weeks. Objective - Vital Signs Vital signs: Vital Signs Temp 97.5 F L 05/31/19 12:00 Pulse 78 05/31/19 12:00 Resp 16 05/31/19 12:00 BP 133/82 05/31/19 12:00 Pulse Ox 98 05/31/19 12:00 Intake & Output 05/30/19 05/31/19 05/31/19 18:59 06:59 18:59 Intake Total 1126.917 559.983 Output Total 600 Balance 526.917 559.983 Weight 119.3 kg Intake: Intake, IV Titration 286.917 199.983 Amount Diltiazem 125 mg In 106.417 Sodium Chloride 0.9% 100 ml @ 5 MG/HR 5 mls/hr IV .Q24H LISANDRO Rx#:[id number] Heparin Sod,Pork in 0.45% 180.5 199.983 NaCl 25,000 unit In 0.45 % NaCl 1 250ml.bag @ 9. 0723 UNITS/KG/HR 10 mls/ hr IV .Q24H LISANDRO Rx#: [id number] Oral 840 360 Output: Urine 600 Other: Voiding Method Toilet Toilet # Voids 1 1 2 - Exam PHYSICAL EXAMINATION: GENERAL: 43-year-old gentleman in no acute distress at the time of my examination HEENT: Head is atraumatic, normocephalic. Pupils equal, round. Sclera anicteric. Conjunctiva are clear. Mucous membranes of the mouth are moist. Ne ck is supple. There is no elevated jugular venous pressure. No carotid bruit is heard. HEART EXAMINATION: S1 and S2 irregularly irregular CHEST EXAMINATION: Lungs are clear to auscultation and precussion. No chest wall tenderness is noted on palpation or with deep breathing. ABDOMEN: Soft, nontender. Bowel sounds are heard. No organomegaly noted. EXTREMITIES: 2+ peripheral pulses with no evidence of peripheral edema and no calf tenderness noted. NEUROLOGIC patient is awake, alert and oriented 3 . . - Labs CBC & Chem 7: 05/31/19 06:07 05/30/19 05:29 Labs: Abnormal Lab Results - Last 24 Hours (Table) 05/31/19 05/31/19 Range/Units 06:07 06:07 WBC 14.3 H (3.8-10.6) k/uL APTT 35.6 H (22.0-30.0) sec Microbiology - Last 24 Hours (Table) 05/29/19 19:10 Group A Strep Throat Culture - Final Throat Strep pyogenes (grp a) 05/29/19 19:20 Blood Culture - Preliminary Blood No Growth after 24 hours Assessment and Plan Plan: Assessment and plan #1 fever and chills, elevated white blood cell count, temperature up to 103 this admission. Patient has been initiated on IV antibiotics, but cultures pending recent exposure to strep\ #2 new-onset atrial fibrillation, likely secondary to infection #3 cardiac risk factors negative for hypertension, no diabetes, no hyperlipidemia, patient is a nonsmoker Plan A shunt has been initiated on 5 mg of Eliquis by mouth twice a day. We will continue this for 6 weeks duration . Follow-up appointment with Dr. Contreras in the office post discharge. DNP note has been reviewed, I agree with a documented findings and plan of care. Patient was seen and examined.
== END 2019-05-31 14:00 | disposition home or self-care (01) ==
LOC: EC 15:55 → INTOOBSV 17:59 → UNDOADMIN 17:59 → 3SCARD 17:59 → UNDODISIN 05-31 14:00
PROVIDERS: ADMIT Family Medicine; ATTEND Family Medicine
DX: A41.9 Sepsis, unspecified organism (principal); J02.9 Acute pharyngitis, unspecified; I48.91 Unspecified atrial fibrillation; Z87.891 Personal history of nicotine dependence; Z20.9 Contact with and (suspected) exposure to unspecified communicable disease
CPT/HCPCS: 96366 ×4; 96367; 96368 ×2; 96376; 96365; 99291; 36415; 93005; 93306; 80061; 80048 ×2; 84443; 83605; 83735 ×2; 84484 ×2; 85025 ×2; 85027; 85049; 85610; 85730 ×3; 87040; 87081; 87430; 71045; G0378 ×3; J1644 ×3; J0696

== ENCOUNTER → 2019-06-28 | Outpatient (CLI) | payer OTHER ==
[2019-06-28 14:37] LABS: HCT 47.7 % (39.0-53.0); HGB 15.6 gm/dL (13.0-17.5); MCH 28.3 pg (25.0-35.0); MCHC 32.7 g/dL (31.0-37.0); MCV 86.6 fL (80.0-100.0); Mean Platelet Volume 6.2; Platelet Count 321 k/uL (150-450); RBC 5.51 m/uL (4.30-5.90); RDW 13.6 % (11.5-15.5)
[2019-06-28 14:38] LABS: African American GFR (CKD) >90 (>60 ml/min/1.73 sqM); Anion Gap 10 mmol/L; Blood Urea Nitrogen 13 mg/dL (9-20); Carbon Dioxide 26 mmol/L (22-30); Chloride 105 mmol/L (98-107); Potassium 4.4 mmol/L (3.5-5.1); Sodium 141 mmol/L (137-145)
== END | disposition home or self-care (01) ==
LOC: LABPAT 13:42
PROVIDERS: ATTEND Internal Medicine Interventional Cardiology
DX: Z01.812 Encounter for preprocedural laboratory examination (principal); I48.0 Paroxysmal atrial fibrillation
CPT/HCPCS: 36415; 80051; 82565; 84520; 85027

== ENCOUNTER 2019-07-07 07:28 | Day surgery (SDC) | payer OTHER ==
[2019-07-05 13:21] VITALS: BMI 37.5
[~2019-07-07 07:28] MED LIST: DEXAMETHASONE SOD PHOSPHATE 10 MG/ML 1 ML VIAL IV ONE; HYDROmorphone 0.5 MG/0.5 ML SYRINGE IVP PRN; LACTATED RINGERS 1,000 ML IV SCH; LIDOCAINE 1% 20 ML VIAL (10MG/ML) FOR IV START INTRADERMA PRN; SODIUM CHLORIDE 0.9% 1,000 ML IV SCH
[2019-07-07] MEDS ORDERED: PROPOFOL 10 MG/ML 20 ML VIAL IV ONE (09:04)
[2019-07-07] MEDS: BENZOCAINE SPRAY 1 CAN MUCOUS MEM ONE ×2 (09:05→09:10)
[2019-07-07] MEDS ORDERED: SODIUM CHLORIDE 0.9% 500 ML 500 ML IV ONE ×2 (09:07)
[2019-07-07 09:43] VITALS: RESP 18; TEMP 98
[2019-07-07 11:09] VITALS: BP 118/72; PULSE 72
--- NOTE | 2019-07-07 12:45 | ECHOT ---
TRANSESOPHAGEAL ECHOCARDIOGRAM DATE OF SERVICE: July 07, 2019 PERFORMING PHYSICIAN: Greg Estevez MD. PROCEDURE PERFORMED: Transesophageal echocardiogram. INDICATION: This is a 43-year-old gentleman who was diagnosed recently with atrial fibrillation and was brought today to undergo a cardioversion. The EMMA is to rule out any cardiac , left atrial appendage or intracardiac thrombus. COMPLICATIONS: None. LEVEL OF SEDATION: Deep sedation was performed using propofol with AIR CARRIER INSPECTOR and anesthesiologist in the room. PROCEDURE DESCRIPTION: After obtaining an informed consent, explaining the procedure, benefits, risks, complications and alternatives, the patient was brought to the transesophageal echocardiogram suite. A pulse oximetry and heart rate monitors were attached to the patient prior to the procedure. The patient's throat was sprayed using lidocaine locally. Following that, the patient was turned into left lateral position. A bite guard was placed and the patient was then sedated with the above doses of Versed and fentanyl in divided doses. Following that, the transesophageal echocardiogram probe was advanced through the bite guard into the mid esophagus where 2-D echocardiogram images as well as color Doppler images of various cardiac structures were obtained. We evaluated the interatrial septum using 2-D echocardiogram, color Doppler, and contrast study. The procedure was completed. There were no complications. FINDINGS: The left ventricle appeared to be dilated. The left ventricular systolic function seems to be impaired with EF around 35%. The right ventricle appeared to be dilated as well. The left atrium appeared to be mildly dilated. The left atrial appendage appeared to be free from any thrombus. The interatrial septum appeared to be intact. The aortic valve is trileaflet valve without stenosis or regurgitation. The mitral valve seems to be mildly thickened with mild to moderate MR. Normal tricuspid valve and pulmonic valve. CONCLUSION: 1. Intact interatrial septum without any evidence of shunt. 2. Normal left atrial appendage without any evidence of thrombus. 3. Impaired left ventricular function with EF around between 30% to 35%. 4. Dilated right ventricle with a normal function. 5. Mild biatrial enlargement. 6. Aortic sclerosis without stenosis or insufficiency. 7. Thickened mitral valve leaflets with mild to moderate mitral regurgitation. 8. Normal tricuspid valve and pulmonic valve. 9. No evidence of pericardial effusion. MMODL / IJN: [id number] /
--- NOTE | 2019-07-07 12:48 | CE ---
CARDIAC ELECTROPHYSIOLOGY REPORT CARDIOVERSION: DATE OF SERVICE: July 07, 2019 PERFORMING PHYSICIAN: Greg Estevez MD. PROCEDURE PERFORMED: Cardioversion. INDICATION: This is a 43-year-old gentleman who was diagnosed recently with atrial fibrillation and was brought today to undergo a cardioversion. Transesophageal echocardiogram was performed and revealed no evidence of intracardiac thrombus. COMPLICATION: None. PROCEDURE DESCRIPTION: After EMMA was performed and left atrial appendage thrombus was ruled out, we did cardioversion. The patient cardioverted from atrial fibrillation to normal sinus mechanism using 200 joules on first attempt. CONCLUSION: Successful cardioversion of atrial fibrillation to normal sinus mechanism using 200 joules on first attempt. MMODL / IJN: [id number] /
== END 2019-07-07 11:09 | disposition home or self-care (01) ==
LOC: CATHCVL 07:28
PROVIDERS: ATTEND Internal Medicine Interventional Cardiology
DX: I34.0 Nonrheumatic mitral (valve) insufficiency (principal); I48.0 Paroxysmal atrial fibrillation; I70.0 Atherosclerosis of aorta; K21.9 Gastro-esophageal reflux disease without esophagitis; Z87.891 Personal history of nicotine dependence; Z79.01 Long term (current) use of anticoagulants; Z79.899 Other long term (current) drug therapy; Z98.890 Other specified postprocedural states; Z82.49 Family history of ischemic heart disease and other diseases of the circulatory system
CPT/HCPCS: 93312; 93320; 93325; 92960; J2704

== ENCOUNTER → 2019-07-28 | Day surgery (SDC) | payer OTHER ==
[2019-07-26 13:33] VITALS: BMI 36.6
[~2019-07-28] MED LIST changes: +ALPRAZolam 0.25 MG TAB PO PRN; +ALPRAZolam 0.5 MG TAB PO PRN; +ASPIRIN 325 MG TAB PO STA; +ATORVASTATIN 80 MG TAB PO STA; -DEXAMETHASONE SOD PHOSPHATE 10 MG/ML 1 ML VIAL IV ONE; +HEPARIN SODIUM 1,000 UN/ML (10ML VL) IV ONE; -HYDROmorphone 0.5 MG/0.5 ML SYRINGE IVP PRN; +HYDROmorphone 1 MG/ML 1 ML SYRINGE IVP ONE; +IOPAMIDOL-370 125ML BTL INJ ONE; +IV FLUID CONTINUATION 1,000 ML IV ONE; -LACTATED RINGERS 1,000 ML IV SCH; -LIDOCAINE 1% 20 ML VIAL (10MG/ML) FOR IV START INTRADERMA PRN; +LIDOCAINE 1% INJ 10MG/ML (20 ML MDV) SQ ONE; +MIDAZOLAM 2 MG/2 ML VIAL IVP ONE; +NITROGLYCERIN SL TABS 0.4 MG TAB SUBLINGUAL PRN; +SODIUM CHLORIDE 0.9% 1,000 ML in EMPTY BAG 1 BAG IV ONE
[2019-07-28 09:48] VITALS: RESP 18
[2019-07-28 10:01] LABS: Basophils % (A) 0 %; Eosinophils # (A) 0.3 k/uL (0-0.7); Eosinophils % (A) 2 %; HGB 15.9 gm/dL (13.0-17.5); Lymphocytes # (A) 3.2 k/uL (1.0-4.8); Lymphocytes % (A) 27 %; MCH 29.3 pg (25.0-35.0); MCHC 33.8 g/dL (31.0-37.0); MCV 86.7 fL (80.0-100.0); Mean Platelet Volume 5.2; Monocytes # (A) 0.5 k/uL (0-1.0); Monocytes % (A) 4 %; Neutrophils # (A) 7.7 k/uL (1.3-7.7); Neutrophils % (A) 65 %; Platelet Count 356 k/uL (150-450); RBC 5.42 m/uL (4.30-5.90); RDW 12.9 % (11.5-15.5); WBC 11.9 k/uL (3.8-10.6)
[2019-07-28] MEDS: VERAPAMIL SYRINGE (5 MG/10 ML) INTRAARTER ONE ×2 (11:05→11:14)
--- NOTE | 2019-07-28 11:28 | P.PCN ---
Date of Procedure: 07/28/19 Operative Findings: CARDIAC CATHETERIZATION PERFORMING PHYSICIAN: Greg Estevez MD, RPVI PROCEDURE PERFORMED: 1. Selective right and left coronary angiogram 2. Left heart catheterization INDICATION: This is a pleasant 44-year-old gentleman who was diagnosed recently was paroxysmal atrial fibrillation and was found to have cardiomyopathy. He continues to be in atrial fibrillation after cardioversion. Because of the cardiomyopathy and the possible starting the patient on flecainide, a heart catheterization was advised COMPLICATION: None APPROACH: Right radial artery LEVEL OF SEDATION: Moderate the sedation may of 15 minutes PROCEDURE DESCRIPTION: After obtaining an informed consent, the patient was brought to cardiac pharmaceutical laboratory technician. Local anesthesia was performed using lidocaine subcutaneously. The right radial artery was cannulated using Seldinger technique, the guidewire passed easily, following that we advanced a 5-Cambodian sheath dilator assembly, the wire and dilator were removed and sheath was flushed. Following that, 2 mg of verapamil along with 5000 unit heparin were given. Selective right and left coronary angiogram using a 6-Cambodian JR4 and JL 3.5 catheters. Following that we did left heart catheterization using 6-Cambodian pigtail catheter. The procedure was completed there was no complication. SELECTIVE CORONARY ANGIOGRAM: The right coronary artery: Is a large caliber vessel and a dominant vessel. Its angiographically normal distally is tortuous and bifurcates into PDA and PLV branches and both appeared to be angiographically normal Left main: Short angiographically normal. The left circumflex: Large caliber vessel and nondominant vessel. In the midportion gives rises into the first and second obtuse marginal branches and both appeared to be angiographically normal. The left anterior descending artery: It is angiographically normal. The proximal portion gives rises into a large diagonal branch which seems to be angiographically normal. HEMODYNAMICS: The LVEDP was 12 mmHg without significant gradient across aortic valve CONCLUSION: Normal coronary angiogram Normal LVEDP POSTPROCEDURE MANAGEMENT: Maximize medical treatment Follow-up with the patient
[2019-07-28 15:22] VITALS: BP 109/74; PULSE 86
== END ==
LOC: CATHCVL 09:26
PROVIDERS: ATTEND Internal Medicine Interventional Cardiology
DX: I42.0 Dilated cardiomyopathy (principal); I48.0 Paroxysmal atrial fibrillation; I34.0 Nonrheumatic mitral (valve) insufficiency; F17.210 Nicotine dependence, cigarettes, uncomplicated; Z79.01 Long term (current) use of anticoagulants; Z79.899 Other long term (current) drug therapy; Z82.49 Family history of ischemic heart disease and other diseases of the circulatory system
CPT/HCPCS: 93458; 85025; C1769; C1894; J2250; J2001; J1644; J1170; Q9967

== ENCOUNTER → 2020-05-09 | Outpatient (CLI) | payer OTHER ==
--- NOTE | 2020-05-09 17:12 | CONS ---
CONSULTATION DATE OF SERVICE: 05/09/2020 This patient is a 44-year-old gentleman who has been evaluated in the sleep center for possible obstructive sleep apnea-hypopnea syndrome. HISTORY OF PRESENT ILLNESS/SLEEP-WAKE EVALUATION: Patient's usual sleep schedule is from p.m. until 6 a.m. basically 7 days a week. No problem with falling asleep, although he has a TV in the bedroom. He usually sleeps on the side position. According to his , he snores. He wakes up once in the morning hours with nocturia. During the day he may feel sleepy while lying down to rest in the afternoon. [place] Sleepiness Scale is 5. He drinks 16 ounces of coffee during the day. No history of hypnagogic hallucinations, sleep paralysis or cataplexy. PAST MEDICAL HISTORY: Positive for atrial fibrillation for one year. Acid reflux. PAST SURGICAL HISTORY: Status post one episode of cardioversion. Status post mandibular advancement surgery. MEDICATIONS: Metoprolol, Eliquis, lisinopril, spironolactone. SOCIAL HISTORY: Positive history of smoking one pack a day for 20 years; quit in 2012. Alcohol consumption occasional. PHYSICAL EXAMINATION: GENERAL: A pleasant gentleman without distress. VITAL SIGNS: BP 115/79, HR 88, RR 16, height 5 feet 10 inches, weight 258, BMI 37, temperature 98.3. Oxygen saturation at room air 98%. HEENT: PERRLA, EOMI. Evaluation of oropharynx showed tongue protrudes midline. Low position of soft palate. Mallampati III to IV. NECK: Supple. No JVD. Thyroid is not palpable. Wide neck; 17 inches in circumference. LUNGS: Clear to percussion and to auscultation. Good air exchange. No wheezing or rhonchi. HEART: S1, S2 irregular. ABDOMEN: Obese. EXTREMITIES: No clubbing or cyanosis. STRINGED INSTRUMENT TUNER: Awake, alert, and oriented X3. Cranial nerves 2 to 7 intact. There is no fasciculation or atrophy. noted. No focal deficits observed. IMPRESSION: 1. Snoring, occasional awakenings from sleep with nocturia, low position of soft palate, wide neck; obstructive sleep apnea-hypopnea syndrome. 2. Atrial fibrillation. 3. Acid reflux. 4. Status post mandibular advancement surgery. PLAN: 1. Polysomnography for evaluation of patient's breathing during sleep. 2. CPAP/BiPAP titration if sleep study confirms obstructive sleep apnea-hypopnea syndrome. 3. Preferable position during sleep on the side. 4. No driving if patient feels any sleepiness. 5. I will see patient for follow up visit to explain results of testing and following plan. Thank you very much for referring this patient for consultation. Sincerely, Jonas Suazo MD, PhD, FAASM Diplomat of [place] [employer] [place] [employer] [facility] [place] MMODL / IJN: [id number] /
== END | disposition home or self-care (01) ==
LOC: SLEEP 15:41
PROVIDERS: ATTEND Internal Medicine
DX: G47.33 Obstructive sleep apnea (adult) (pediatric) (principal); I48.91 Unspecified atrial fibrillation; K21.9 Gastro-esophageal reflux disease without esophagitis; R35.1 Nocturia; Z98.890 Other specified postprocedural states; Z87.891 Personal history of nicotine dependence; Z79.01 Long term (current) use of anticoagulants
CPT/HCPCS: 99211

== ENCOUNTER 2024-09-05 09:40 | Day surgery (SDC) | payer OTHER ==
[2024-09-01 11:18] VITALS: BMI 36.6
[2024-09-05] MEDS: IV FLUID CONTINUATION 1,000 ML IV ONE (10:42)
[2024-09-05 11:04] LABS: ALT 23 U/L (4-49); AST 23 U/L (17-59); Magnesium 2.2 mg/dL (1.6-2.3)
[2024-09-05] MEDS ORDERED: HEPARIN SODIUM,PORCINE 10,000 UNIT/ML 1 ML VIAL ONE (11:20)
[2024-09-05] MEDS ORDERED: MIDAZOLAM 2 MG/2 ML VIAL ONE (11:20)
[2024-09-05] MEDS ORDERED: LIDOCAINE 1% INJ 10MG/ML (20 ML MDV) ONE (11:20)
[2024-09-05] MEDS ORDERED: SUCCINYLCHOLINE CHLORIDE 200 MG/10 ML VIAL IV ONE (11:20)
[2024-09-05] MEDS ORDERED: PROPOFOL 10 MG/ML 20 ML VIAL IV ONE (11:20)
[2024-09-05] MEDS ORDERED: HEPARIN SODIUM,PORCINE 5,000 UNIT/ML 1 ML VIAL ONE (11:20)
[2024-09-05] MEDS ORDERED: fentaNYL (PF) 50 MCG/ML 2 ML AMP ONE (11:20)
--- NOTE | 2024-09-05 11:36 | P.HPCAR ---
History of Present Illness This is Dr. Aguilar dictating an H/P on this patient The patient was interviewed and examined IMPRESSION / ASSESSMENT: Persistent longstanding atrial fibrillation, symptomatic Failed medical treatment Associated cardiomyopathy ejection fraction 35% Nonischemic in nature with normal coronary arteries Severe left atrial enlargement PLAN: A-fib ablation Continue anticoagulation Follow-up with Dr. Estevez postprocedure as an outpatient HPI Patient continues to be short of breath with average activities such as climbing a flight of stairs quickly No dizziness no chest pain no syncope Denies any fever chills cough expectoration or upper respiratory symptoms recently ROS: No fever chills or rigors, no cough, phlegm or expectoration, no nausea, vomiting or diarrhea, no hematuria, dysuria, no musculoskeletal complaints, no strokes or seizures, no skin lesions. EXAMINATION: Pulse rate 112 beats minute, blood pressure 130/77 Breath sounds are clear no rhonchi no crackles Heart sounds are irregular No JVD No lower extremity edema No orthopnea REVIEW OF LABS, ECG & MEDICAL DATA Magnesium 2.2 normal AST and ALT Physical Exam Vitals: Vital Signs Temp Pulse Resp BP BP Pulse Ox 09/05/24 10:17 98.5 F 112 H 14 130/77 140/86 99 Intake and Output 09/04/24 09/05/24 09/05/24 22:59 06:59 14:59 Intake Total 400 Balance 400 Intake: IV 400 Other: Weight 119.9 kg Past Medical History Past Medical History: Atrial Fibrillation, GERD/Reflux History of Any Multi-Drug Resistant Organisms: None Reported Past Surgical History: Hernia Repair, Orthopedic Surgery Additional Past Surgical History / Comment(s): JAW SURGERY, RIGHT LITTLE FINGER SURGERY , CARDIOVERSION, Past Anesthesia/Blood Transfusion Reactions: Previous Problems w/ Anesthesia, Postoperative Nausea & Vomiting (PONV) Smoking Status: Former smoker - Past Family History Mother Family Medical History: No Reported History Family Family Medical History: No Reported History Additional Family Medical History / Comment(s): Positive strep throat and and daughter Physical Examination Vital Signs Temp Pulse Resp BP BP Pulse Ox 09/05/24 10:17 98.5 F 112 H 14 130/77 140/86 99 Intake and Output 09/04/24 09/05/24 09/05/24 22:59 06:59 14:59 Intake Total 400 Balance 400 Intake: IV 400 Other: Weight 119.9 kg Results Cardiac Enzymes 09/05/24 Range/Units 10:40 AST 23 (17-59) U/L Comprehensive Metabolic Panel 09/05/24 Range/Units 10:40 AST 23 (17-59) U/L ALT 23 (4-49) U/L Current Medications Generic Name Dose Route Start Last Admin Trade Name Freq PRN Reason Stop Dose Admin Sodium Chloride 1,000 mls @ 20 mls/hr 09/05/24 07:41 Saline 0.9% IV 10/05/24 07:40 .Q24H LISANDRO Intake and Output 09/04/24 09/05/24 09/05/24 22:59 06:59 14:59 Intake Total 400 Balance 400 Intake: IV 400 Other: Weight 119.9 kg Patient Weight 09/06/24 06:59 Weight 119.9 kg
[2024-09-05] MEDS: LIDOCAINE 1% INJ 10MG/ML (20 ML MDV) SQ ONE (12:01)
[2024-09-05] MEDS: HEPARIN SODIUM,PORCINE 10,000 UNIT in SODIUM CHLORIDE 0.9% 1,000 ML IRRIGATION ONE (15:00)
[2024-09-05] MEDS: HEPARIN SODIUM (1,000 UNIT/ML) 1,000 UNIT in SODIUM CHLORIDE 0.9% 1,000 ML IRRIGATION ONE (15:00)
[2024-09-05] MEDS: HEPARIN SOD,PORK IN 0.45% NACL 25,000 UNIT in 0.45% NACL 1 250ML.BAG IV ONE (15:02)
[2024-09-05] MEDS: IOPAMIDOL-370 100ML BTL INJ ONE (15:24)
--- NOTE | 2024-09-05 15:59 | P.EPPROC ---
- EP Procedure Note Electrophysiology Procedure Note: PROCEDURE A. fib ablation, PVI, left atrial septal ablation, left atrial roof ablation DIAGNOSIS Longstanding persistent atrial fibrillation, symptomatic, refractory to therapy associated with cardiomyopathy, nonischemic RESULT No left atrial appendage mass seen on intracardiac echo, very large left atrial appendage, enlarged left atrium, long left atrial roof Large right superior pulmonary vein, common left-sided veins Successful A. fib ablation/pulmonary vein isolation of all veins using cryo- ablation Complete entrance block in all 4 veins confirmed No evidence for phrenic nerve injury Esophageal deflection YES Electrical cardioversion with a synchronized shock across the chest YES PROCEDURE DETAILS Written informed consent prior to procedure. Patient brought to the EP lab. General anesthesia given. Heparin administered. A city maintained above 300 seconds Both groins prepped and draped per protocol and venous sheaths placed. Esophagus intubated, circa catheter for temperature monitoring an endoscope for possible esophageal deflection. Phrenic nerve monitoring performed. Esophageal temperature monitoring performed. Esophageal deflection performed if circa catheter overlapping with the balloon or circa temperature less than 27.5C Intracardiac echocardiography performed. Pericardium evaluated. Left atrial appendage evaluated. Left atrium evaluated along with pulmonary veins Transseptal catheterization performed under fluoroscopic guidance and intra cardiac echo guidance Cryoablation sheath exchanged, balloon catheter along with achieve catheter placed in the left atrium. Pulmonary veins isolated in the following sequence: Left superior pulmonary vein followed by left inferior pulmonary vein, followed by right inferior pulmonary vein and lastly right superior pulmonary vein. Phrenic nerve stimulation along with capture thresholds within the SVC and right superior pulmonary vein to identify the phrenic nerve proximity to the cryo- balloon. Pulmonary veins isolated and confirmed with entrance and exit block. Phrenic nerve integrity confirmed at the end of the procedure Ablation of the left atrial roof performed with sequential lesions from the left superior to the right superior pulmonary veins. Additional RF lesions in the mid section although there was noncapture in this zone. Ablation of the electrograms confirmed Ablation of the left atrial septum performed with cannulation of the superior branch of the right inferior and the inferior branch of the right superior vein to achieve ablation of the posterior septum of the left atrium. Ablation of electrograms confirmed Voltage mapping performed at the end of the procedure to confirm successful ablation Electrical cardioversion performed for persistence of atrial fibrillation despite successful ablation. Diagnostic catheters for the high right atrium, His bundle, coronary sinus placed. LA and RA pressures recorded LA pressure: 01/01/10 Diagnostic EP study with coronary sinus pacing and recording Successful electrical cardioversion performed after completion of pulmonary vein isolation, left atrial septal ablation and left atrial roof ablation Baseline measurements: Sinus cycle length 650 ms, CO interval 146 ms, QRS 89 and QT 354 ms AH 43 ms, HV interval 52 ms Venous sheaths were removed and hemostasis assured with a closure device. Patient extubated and transferred to recovery Increase procedural time During ablation multiple attempts had to be made to move the esophagus a safe distance of the from the pulmonary vein draining cryoablation, to avoid excessive thermal cooling of the esophagus This took extra time and effort to keep the esophagus a safe distance away from the cryoablation balloon. The right-sided esophagus, Multiple attempts needed for successful cryoablation isolation of the right superior pulmonary vein, which was a very large pulmonary vein with large tributaries Multiple attempts at occlusion and ablation of the left inferior pulmonary vein with rapid signals. Despite good occlusion initially the pulmonary and potentia ls remained, despite good cryo temperatures Finally successful isolation of the pulmonary vein was performed Very large left atrium with a long left atrial roof that required additional ablation lesions in the mid section PROCEDURES PERFORMED Diagnostic EP study CS pacing and recording Left and right transseptal catheterization Catheter the mapping of the tachycardia Intracardiac echocardiography Pulmonary vein isolation with transseptal and comprehensive EPS, 45890 Extended procedure duration Left atrial roof line, +[id number] Linear ablation, left atrium, +[id number] Electrical cardioversion with a synchronized shock across the chest [id number]
[2024-09-05] MEDS: ACETAMINOPHEN IV (For NPO) 1,000 MG in EMPTY BAG 1 BAG IVPB ONE (16:36)
[2024-09-05] MEDS: SODIUM CHLORIDE 0.9% 1,000 ML IV SCH (16:49)
[2024-09-05] MEDS: RIVAROXABAN 20 MG TAB PO SCH (20:22)
[2024-09-06 03:48] VITALS: RESP 16
[2024-09-06] MEDS: ACETAMINOPHEN TAB 325 MG TAB PO PRN (03:56)
[2024-09-06 07:12] LABS: African American GFR (CKD) >90 (>60 ml/min/1.73 sqM); Non-African American GFR(CKD) >90 (>60 ml/min/1.73 sqM)
--- NOTE | 2024-09-06 07:29 | P.DS ---
Providers Attending physician: Harley Aguilar Primary care physician: Stated None Hospital Course: Patient is doing well. Mild pleuritic chest discomfort when he takes a deep breath but otherwise he is comfortable On examination his blood pressure is normal 106/70 mmHg No JVD No orthopnea Groins of healed well no hematoma no swelling There is no pericardial rub Normal heart sounds no murmurs Clear lungs no rhonchi no crackles Impression longstanding persistent atrial fibrillation that has not responded to treatment Associated nonischemic cardiomyopathy with reduced LV systolic function and a very enlarged left atrium Status post PVI, left atrial septal ablation and left atrial roof ablation Plan Continue heart failure medications Continue Xarelto uninterrupted. It should not be held temporarily for any reason, for the next 2 months and this is a strict recommendation This was discussed with the patient and his . Stroke risk was discussed He will follow-up with Dr. Estevez in a week Patient Condition at Discharge: Stable Plan - Discharge Summary Discharge Rx Participant: No New Discharge Prescriptions: No Action RX: Metoprolol Succinate (ER) [Toprol XL] 50 mg PO DAILY RX: Spironolactone 25 mg PO DAILY RX: Lansoprazole [Prevacid 24Hr] 15 mg PO DAILY RX: Rivaroxaban [Xarelto] 20 mg PO HS RX: Cholecalciferol (Vitamin D3) [Vitamin D3 (50 Mcg = 2000 Iu)] 50 mcg PO DAILY Discharge Medication List RX: Cholecalciferol (Vitamin D3) [Vitamin D3 (50 Mcg = 2000 Iu)] 50 mcg PO DAILY 12/14/23 [History] RX: Lansoprazole [Prevacid 24Hr] 15 mg PO DAILY 12/14/23 [History] RX: Metoprolol Succinate (ER) [Toprol XL] 50 mg PO DAILY 12/14/23 [History] RX: Rivaroxaban [Xarelto] 20 mg PO HS 12/14/23 [History] RX: Spironolactone 25 mg PO DAILY 12/14/23 [History]
[2024-09-06] MEDS: METOPROLOL SUCCINATE (ER) 50 MG TAB.ER.24H PO SCH (08:07)
[2024-09-06] MEDS: COLCHICINE 0.6 MG EACH PO STA (08:07)
[2024-09-06] MEDS: SPIRONOLACTONE 25 MG TAB PO SCH (08:07)
[2024-09-06 08:11] VITALS: BP 115/77; PULSE 91; TEMP 98.4
== END 2024-09-06 09:38 | disposition home or self-care (01) ==
LOC: CATHEP 09:40 → 3SCARD 16:03 → CATHEP 09-06 09:38
PROVIDERS: ATTEND Internal Medicine Clinical Cardiac Electrophysiology
DX: I48.11 Longstanding persistent atrial fibrillation (principal); I42.8 Other cardiomyopathies; I50.9 Heart failure, unspecified; K21.9 Gastro-esophageal reflux disease without esophagitis; Z79.01 Long term (current) use of anticoagulants; Z79.899 Other long term (current) drug therapy; Z87.891 Personal history of nicotine dependence
CPT/HCPCS: 92960; 93656; 93657; 86900; 86901; 84443; 82565; 83735; 84450; 84460; 86850; C1894; C1769; C1760; C1730 ×2; C1731; C1759; C1733; C1766; C1732; J2250; J0330; J1644 ×4; J2003; J3010; J0131; J2704; Q9967

== ENCOUNTER 2024-11-10 06:12 | Day surgery (SDC) | payer OTHER ==
[~2024-11-10 06:12] MED LIST changes: -ALPRAZolam 0.25 MG TAB PO PRN; -ALPRAZolam 0.5 MG TAB PO PRN; -ASPIRIN 325 MG TAB PO STA; -ATORVASTATIN 80 MG TAB PO STA; -HEPARIN SODIUM 1,000 UN/ML (10ML VL) IV ONE; -HYDROmorphone 1 MG/ML 1 ML SYRINGE IVP ONE; -IOPAMIDOL-370 125ML BTL INJ ONE; -IV FLUID CONTINUATION 1,000 ML IV ONE; +LACTATED RINGERS 1,000 ML IV SCH; -LIDOCAINE 1% INJ 10MG/ML (20 ML MDV) SQ ONE; -MIDAZOLAM 2 MG/2 ML VIAL IVP ONE; -NITROGLYCERIN SL TABS 0.4 MG TAB SUBLINGUAL PRN; -SODIUM CHLORIDE 0.9% 1,000 ML IV SCH; -SODIUM CHLORIDE 0.9% 1,000 ML in EMPTY BAG 1 BAG IV ONE
[2024-11-10] MEDS: SODIUM CHLORIDE 0.9% 500 ML IV ONE (06:55)
[2024-11-10] MEDS ORDERED: PROPOFOL 10 MG/ML 20 ML VIAL IV ONE (07:25)
[2024-11-10 07:32] LABS: African American GFR (CKD) >90 (>60 ml/min/1.73 sqM); Anion Gap 8 mmol/L; Blood Urea Nitrogen 17 mg/dL (9-20); Calcium 8.8 mg/dL (8.4-10.2); Carbon Dioxide 25 mmol/L (22-30); Chloride 104 mmol/L (98-107); Glucose 94 mg/dL (74-99); Non-African American GFR(CKD) 83 (>60 ml/min/1.73 sqM); Sodium 137 mmol/L (137-145)
[2024-11-10 07:39] LABS: Potassium 5.7 mmol/L (3.5-5.1)
--- NOTE | 2024-11-10 07:55 | P.PCN ---
Date of Procedure: 11/10/24 Operative Findings: Cardioversion Report Performing physician Greg Estevez M.D. Procedure performed Successful cardioversion of atrial fibrillation to normal sinus mechanism using 120 J at first attempt Indication Symptomatic atrial fibrillation Complication None Level of sedation The procedure was performed under deep sedation using propofol with BAND SINGER in the room Procedure description After obtaining an informed consent the patient was brought to the recovery room. Sedation was introduced using propofol with BAND SINGER in the room. Subsequently the patient cardioverted from atrial fibrillation to normal sinus mechanism using 200 J and first attempt Conclusion Successful cardioversion of atrial fibrillation to normal sinus mechanism using 200 J Postprocedure management Continue the current medical regimen Continue oral anticoagulation Follow-up with the patient
[2024-11-10 08:11] VITALS: TEMP 97
[2024-11-10 09:07] VITALS: BP 114/77; PULSE 70; RESP 18
== END 2024-11-10 09:13 | disposition home or self-care (01) ==
LOC: OR 06:12
PROVIDERS: ATTEND Internal Medicine Interventional Cardiology
DX: I48.19 Other persistent atrial fibrillation (principal); I42.8 Other cardiomyopathies; I35.9 Nonrheumatic aortic valve disorder, unspecified; K21.9 Gastro-esophageal reflux disease without esophagitis; M10.9 Gout, unspecified; F41.9 Anxiety disorder, unspecified; F17.210 Nicotine dependence, cigarettes, uncomplicated; F10.99 Alcohol use, unspecified with unspecified alcohol-induced disorder; E66.3 Overweight; Z68.36 Body mass index [BMI] 36.0-36.9, adult; Z79.899 Other long term (current) drug therapy
CPT/HCPCS: 92960; 80048; J2704